=== PATIENT | male | born 1975 | race Caucasian/White ===

== ENCOUNTER 2018-10-08 19:07 | Emergency (ER) | payer MEDICAID ==
[~2018-10-08] VITALS: Ht 172.7 cm; Wt 81.6 kg
[2018-10-08 19:15] VITALS: BP 149/102
--- NOTE | 2018-10-08 19:34 | NUR ---
PT PRESENTS TO ED WITH RLQ ABD PAIN RAIDIATING TO RIGHT LOWER BACK X1 HR. C/O N/V/C X2 DAYS. POSITIONED IN BED FOR COMFORT. A&OX4. AT BEDSIDE. VSS. ER MD AWARE. CONTINUE TO MONITOR. HX OF HYPERLIPIDEMIA.
--- NOTE | 2018-10-08 19:34 | NUR ---
Dr. Valdes evaluating patient at bedside.
[2018-10-08] MEDS ORDERED: ONDANSETRON 4 MG/2 ML VIAL IVP ONE ×2 (19:40→20:10)
[2018-10-08] MEDS ORDERED: MORPHINE SULFATE 4 MG/ML SYR IVP ONE ×2 (19:40→20:10)
[2018-10-08] MEDS: NACL 0.9% 1,000 ML IV SCH ×2 (19:53→20:35)
--- NOTE | 2018-10-08 19:55 | NUR ---
Patient taken to CT scan via gurney by Prezto.
[2018-10-08 20:00] LABS: BASOPHILS % (AUTO) 0.2 % (0.0-2.0); EOSINOPHILS # (AUTO) 0.2 K/uL (0-0.4); EOSINOPHILS % (AUTO) 2.1 % (0.0-4.0); HEMATOCRIT 45.1 % (36-52); HEMOGLOBIN 15.2 g/dL (12.0-18.0); LYMPHOCYTES # (AUTO) 2.4 K/uL (2.0-11.5); LYMPHOCYTES % (AUTO) 30.7 % (20.5-51.1); MEAN CORPUSCULAR HEMOGLOBIN 31 pg (27-31); MEAN CORPUSCULAR HGB CONC 34 g/dL (33-37); MEAN CORPUSCULAR VOLUME 91.5 fL (80-94); MONOCYTES # (AUTO) 0.7 K/uL (0.8-1.0); NEUTROPHILS # (AUTO) 4.5 K/uL (1.8-7.7); PLATELET COUNT (AUTO) 167 K/uL (140-450); RED BLOOD CELL COUNT(AUTO) 4.93 MIL/uL (4.20-6.10); RED CELL DISTRIBUTION WIDTH 13.2 % (11.6-13.7); WHITE BLOOD COUNT (AUTO) 7.7 K/uL (4.8-10.8)
[2018-10-08 20:05] LABS: APPEARANCE,URINE CLEAR (CLEAR); BILIRUBIN,URINE NEGATIVE (NEGATIVE); BLOOD, URINE 1+ (NEGATIVE); COLOR,URINE YELLOW (YELLOW); LEUKOCYTE ESTERASE ,URINE NEGATIVE (NEGATIVE); NITRITE, URINE NEGATIVE (NEGATIVE); UGLUCOSE NEGATIVE (NEGATIVE)
[2018-10-08 20:15] LABS: ALBUMIN 4.2 g/dL (3.4-5.0); ANION GAP 9.5 (8-16); CARBON DIOXIDE 30.5 mmol/L (21-32); CREATININE 1.3 mg/dL (0.7-1.3); TOTAL BILIRUBIN 0.3 mg/dL (0.0-1.0)
[2018-10-08 20:17] LABS: RBC,URINE 3-10 (FEW) /HPF (0-5)
[2018-10-08 20:18] LABS: WBC,URINE 0-5 (RARE) /HPF (0-5)
--- NOTE | 2018-10-08 21:02 | NUR ---
COLD CLOTH PROVIDED TO PT FOR PAIN COMFORT MEASURE.
[2018-10-08] MEDS ORDERED: KETOROLAC 30 MG/ML VIAL IVP ONE (21:10)
--- NOTE | 2018-10-08 22:10 | NUR ---
Dr. Valdes re-evaluating patient at bedside.
[2018-10-08 22:31] VITALS: BP 136/89
--- NOTE | 2018-10-08 22:31 | NUR ---
Patient discharged with v/s stable. Written and verbal after care instructions given and explained. Patient alert, oriented and verbalized understanding of instructions. Ambulatory with steady gait. All questions addressed prior to discharge. ID band removed. Patient advised to follow up with PMD. Rx of zofran, flomax, and norco given. Patient educated on indication of medication including possible reaction and side effects. Opportunity to ask questions provided and answered.
--- NOTE | 2018-10-11 07:50 | NUR ---
Verified with RN that 1000ml 0.9NS IV that was started at 1940 completed at 2099.
== END 2018-10-08 22:31 | disposition home or self-care (01) ==
LOC: MED 19:07
DX: N20.0 Calculus of kidney (principal)
CPT/HCPCS: 36415; 74176; 80053; 81001; 85025; 87086; 96361; 96374; 96375; 96376; 99284; J1885; J2270; J2405; J7030; 81002

== ENCOUNTER 2018-12-16 09:56 | Emergency (ER) | payer SELFPAY ==
[~2018-12-16] VITALS: Ht 170.2 cm; Wt 53.5 kg
[2018-12-16 10:18] VITALS: BP 129/76
--- NOTE | 2018-12-16 10:28 | NUR ---
pt first found on er # 03 hob @ 30 degrees sr up,c/o left flank area pains for 3 hours,has rt kidney stone by hx.vas 04/30 NOW.AWAITS ER MD EVALUATIONS/ASSESSMENTS.
--- NOTE | 2018-12-16 10:32 | NUR ---
cookie melton at bedside for evaluations/assessments.obinna bunch.awaits reevaluations.
[2018-12-16] MEDS ORDERED: KETOROLAC 30 MG/ML VIAL IVP ONE (10:40)
[2018-12-16] MEDS ORDERED: NACL 0.9% 1,000 ML IV ONE (10:40)
[2018-12-16] MEDS ORDERED: ONDANSETRON 4 MG/2 ML VIAL IVP ONE (10:45)
[2018-12-16 10:52] LABS: BASOPHILS % (AUTO) 0.3 % (0.0-2.0); EOSINOPHILS # (AUTO) 0.1 K/uL (0-0.4); EOSINOPHILS % (AUTO) 0.9 % (0.0-4.0); HEMATOCRIT 45.9 % (36-52); HEMOGLOBIN 15.8 g/dL (12.0-18.0); LYMPHOCYTES # (AUTO) 1.2 K/uL (2.0-11.5); MEAN CORPUSCULAR HEMOGLOBIN 32 pg (27-31); MEAN CORPUSCULAR HGB CONC 34 g/dL (33-37); MEAN CORPUSCULAR VOLUME 91.9 fL (80-94); MONOCYTES # (AUTO) 0.6 K/uL (0.8-1.0); MONOCYTES % (AUTO) 6.4 % (1.7-9.3); NEUTROPHILS # (AUTO) 7.3 K/uL (1.8-7.7); NEUTROPHILS % (AUTO) 79.4 % (42.2-75.2); PLATELET COUNT (AUTO) 178 K/uL (140-450); RED CELL DISTRIBUTION WIDTH 12.9 % (11.6-13.7); WHITE BLOOD COUNT (AUTO) 9.2 K/uL (4.8-10.8)
--- NOTE | 2018-12-16 10:55 | NUR ---
to ct test area via stretcher,ivf infusing well.obinna bunch.awaits test results,reevaluations.
[2018-12-16 10:59] LABS: ANION GAP 12.4 (8-16); CARBON DIOXIDE 28.4 mmol/L (21-32); CREATININE 1.3 mg/dL (0.7-1.3); POTASSIUM 3.8 mmol/L (3.5-5.1)
--- NOTE | 2018-12-16 10:59 | NUR ---
PT SENT TO CT WITH TECH AAOX4. PAIN POST IVP PAIN MEDS 01/28. ER MD NOTIFTED
[2018-12-16 11:05] LABS: ALBUMIN 4.2 g/dL (3.4-5.0); TOTAL BILIRUBIN 0.5 mg/dL (0.0-1.0)
--- NOTE | 2018-12-16 11:48 | NUR ---
cookie melton at bedside for reevaluations.obinna bunch.spouse bedside.awaits reevaluations.
--- NOTE | 2018-12-16 12:01 | NUR ---
STILL UNABLE TO URINATE,SPOUSE BEDSIDE.ER MD AWARE FOR PT TO HAVE PO FLUIDS.DONE.awaits reevaluations.
--- NOTE | 2018-12-16 12:06 | NUR ---
pt was able to use urinal @ 75 ml,urine specimen sent to lab.pt tolerated procedures with no incidents.awaits reevaluations.
[2018-12-16] MEDS ORDERED: oxyCODONE/APAP 5/325 MG 1 TAB TAB PO ONE (12:10)
[2018-12-16 12:54] LABS: APPEARANCE,URINE HAZY (CLEAR); BILIRUBIN,URINE NEGATIVE (NEGATIVE); BLOOD, URINE 3+ (NEGATIVE); LEUKOCYTE ESTERASE ,URINE NEGATIVE (NEGATIVE); NITRITE, URINE NEGATIVE (NEGATIVE); PH,URINE 5.5 (5.0-9.0); UGLUCOSE NEGATIVE (NEGATIVE)
--- NOTE | 2018-12-16 13:04 | NUR ---
Patient appears to be resting in bed. Vital Signs within normal limits. Respirations even and unlabored.
--- NOTE | 2018-12-16 13:24 | NUR ---
resting asleep er # 03 hob @ 30 degrees sr up,spouse bedside.awaits reevaluations.
[2018-12-16 13:27] LABS: WBC,URINE 0-5 /HPF (0-5)
[2018-12-16 13:28] LABS: COLOR,URINE ORANGE (YELLOW)
--- NOTE | 2018-12-16 13:40 | NUR ---
was able to use urinal with good result @ 200 ml output.pt tolerated procedures with no incidents.awaits reevaluations.obinna bunch.
--- NOTE | 2018-12-16 14:04 | NUR ---
iv access removed with catheter intact,no signs redness pains swelling to icv site,left ac area.pt tolerated procedures with no incidents/.upon er md reevaluations pt d/c'ed in care of spouse with rx's,instructions and to follow up with pmd/clinic for checkup further evaluations.ambulates on his own and states he understands instructions aND WILL COMPLY.RETURN TO NEARest appropriate medical facility if conditions owrsens/emergencies.obinna bunch.
[2018-12-16 14:15] VITALS: BP 122/87
== END 2018-12-16 14:03 | disposition home or self-care (01) ==
LOC: MED 09:56
DX: N20.0 Calculus of kidney (principal)
CPT/HCPCS: 36415; 74176; 80053; 81001; 85025; 87086; 96374; 96375; 99284; J1885; J2405; J7030; J7060

== ENCOUNTER 2021-05-28 07:08 | Emergency (ER) | payer MEDICAID ==
[~2021-05-28] VITALS: Ht 175.3 cm; Wt 86.2 kg
[2021-05-28 07:23] VITALS: BP 140/89
--- NOTE | 2021-05-28 07:29 | NUR ---
CH A Addendum: 05/28/21 at 0828 by [email or web address] handed on urine cup.
--- NOTE | 2021-05-28 07:53 | NUR ---
bib C/O LEFT TESTICULAR PAIN RADIATING TO LLQ ABDOMINAL PAIN, N/V & DYSURIA X TODAY. PMH: DENIES
[2021-05-28] MEDS ORDERED: MORPHINE SULFATE 4 MG/ML SYR IVP ONE (08:10)
[2021-05-28] MEDS ORDERED: NACL 0.9% 1,000 ML IV ONE (08:10)
[2021-05-28] MEDS ORDERED: KETOROLAC 30 MG/ML VIAL IVP ONE (08:10)
--- NOTE | 2021-05-28 08:16 | NUR ---
SIGN HANGER SUPERVISOR PHONE NAVEED #[phone]
--- NOTE | 2021-05-28 08:20 | NUR ---
PT TAKEN TO X RAY.
--- NOTE | 2021-05-28 09:07 | NUR ---
PT BACK FROM US/RAD. PT IN CHAIR A
[2021-05-28 09:14] LABS: APPEARANCE,URINE CLEAR (CLEAR); BILIRUBIN,URINE NEGATIVE (NEGATIVE); BLOOD, URINE 1+ (NEGATIVE); COLOR,URINE YELLOW (YELLOW); LEUKOCYTE ESTERASE ,URINE NEGATIVE (NEGATIVE); NITRITE, URINE NEGATIVE (NEGATIVE); PH,URINE 5.5 (5.0-9.0); UGLUCOSE NEGATIVE (NEGATIVE)
--- NOTE | 2021-05-28 09:15 | NUR ---
20 G IV ESTABLISHED TO PTS RIGHT AC. BLOOD SAMPLES COLLECTED VIA IV AND WALKED TO LAB
[2021-05-28 09:23] LABS: BASOPHILS % (AUTO) 0.5 % (0.0-2.0); EOSINOPHILS # (AUTO) 0.1 K/uL (0-0.4); EOSINOPHILS % (AUTO) 0.7 % (0.0-4.0); HEMOGLOBIN 16.8 g/dL (12.0-18.0); LYMPHOCYTES # (AUTO) 1.1 K/uL (2.0-11.5); LYMPHOCYTES % (AUTO) 13.2 % (20.5-51.1); MEAN CORPUSCULAR HEMOGLOBIN 32 pg (27-31); MEAN CORPUSCULAR HGB CONC 34 g/dL (33-37); MONOCYTES # (AUTO) 0.5 K/uL (0.8-1.0); MONOCYTES % (AUTO) 5.7 % (1.7-9.3); NEUTROPHILS # (AUTO) 6.8 K/uL (1.8-7.7); NEUTROPHILS % (AUTO) 79.9 % (42.2-75.2); PLATELET COUNT (AUTO) 171 K/uL (140-450); RED BLOOD CELL COUNT(AUTO) 5.27 MIL/uL (4.20-6.10); RED CELL DISTRIBUTION WIDTH 13.7 % (11.6-13.7); WHITE BLOOD COUNT (AUTO) 8.5 K/uL (4.8-10.8)
[2021-05-28 09:35] LABS: ALBUMIN 4.6 g/dL (3.4-5.0); ANION GAP 10.4 (8-16); CARBON DIOXIDE 28.7 mmol/L (21-32); CREATININE 1.6 mg/dL (0.6-1.3); POTASSIUM 4.1 mmol/L (3.5-5.1); TOTAL BILIRUBIN 0.3 mg/dL (0.0-1.0)
[2021-05-28 09:52] LABS: RBC,URINE 0-5 /HPF (0-5); WBC,URINE 0-5 /HPF (0-5)
[2021-05-28] MEDS ORDERED: IBUP-2213 PO (11:08)
[2021-05-28] MEDS ORDERED: TAMS0.4C96 PO (11:08)
[2021-05-28 11:29] VITALS: BP 132/77
--- NOTE | 2021-05-28 11:29 | NUR ---
Patient discharged with v/s stable. Written and verbal after care instructions given and explained for Kidney stones. Patient alert, oriented and verbalized understanding of instructions. Ambulatory with steady gait. All questions addressed prior to discharge. ID band removed. Patient advised to follow up with PMD. Rx of Ibuprofen, Tamsulosin Hcl given. Patient educated on indication of medication including possible reaction and side effects. Opportunity to ask questions provided and answered.
== END 2021-05-28 11:29 | disposition home or self-care (01) ==
LOC: MED 07:08
DX: R10.9 Unspecified abdominal pain (principal); R03.0 Elevated blood-pressure reading, without diagnosis of hypertension; R11.2 Nausea with vomiting, unspecified; N50.812 Left testicular pain; Z79.899 Other long term (current) drug therapy
CPT/HCPCS: 36415; 74018; 76770; 76870; 80053; 81001; 85025; 87086; 96361; 96374; 96375; 99285; J1885; J2270; J7030; Q0092

== ENCOUNTER 2022-01-27 03:49 | Emergency (ER) | payer MEDICAID ==
[~2022-01-27] VITALS: Ht 172.7 cm; Wt 86.2 kg
[~2022-01-27 03:49] MED LIST: IBUP-2213 PO; TAMS0.4C96 PO
[2022-01-27 03:53] VITALS: BP 134/97
--- NOTE | 2022-01-27 04:01 | NUR ---
Patient ambulated to bed 11.
[2022-01-27] MEDS ORDERED: ONDANSETRON 4 MG/2 ML VIAL IVP ONE ×2 (04:05→05:25)
[2022-01-27] MEDS ORDERED: KETOROLAC 30 MG/ML VIAL IVP ONE (04:05)
[2022-01-27] MEDS ORDERED: NACL 0.9% 1,000 ML IV ONE (04:05)
--- NOTE | 2022-01-27 04:14 | NUR ---
46 YO/M PRESENTS TO ED W C/O L FLANK PAIN 8/10 PRESSURE, NON-RAD, CONSTANT X2 DAYS, +N/V, CHILLS, + BURNING URINATION, RETENTION, FREQUENCY BUT ONLY DRIBBLING, + L TESTICLE PAIN PRESSURE X2-3 DAYS (NO SWELLING OR REDNESS). PT DENIES ANY FEVER OR DIARRHEA. PT LAYING IN BED LOCKED IN LOWEST POSITION. AT BEDSIDE. WILL CONTINUE TO MONITOR. PMH: KIDNEY STONES, HLD ALLERGIES: DENIES
--- NOTE | 2022-01-27 04:22 | NUR ---
BLOOD DRAWN AND SENT TO LAB.
--- NOTE | 2022-01-27 04:40 | NUR ---
PT TO CT VIA [facility].
[2022-01-27 04:51] LABS: BASOPHILS % (AUTO) 0.5 % (0.0-2.0); EOSINOPHILS # (AUTO) 0.1 K/uL (0-0.4); EOSINOPHILS % (AUTO) 2.5 % (0.0-4.0); HEMATOCRIT 45.2 % (36-52); HEMOGLOBIN 15.1 g/dL (12.0-18.0); LYMPHOCYTES # (AUTO) 1.5 K/uL (2.0-11.5); LYMPHOCYTES % (AUTO) 26.6 % (20.5-51.1); MEAN CORPUSCULAR HEMOGLOBIN 31 pg (27-31); MEAN CORPUSCULAR HGB CONC 33 g/dL (33-37); MEAN CORPUSCULAR VOLUME 93.5 fL (80-94); MONOCYTES # (AUTO) 0.4 K/uL (0.8-1.0); MONOCYTES % (AUTO) 7.3 % (1.7-9.3); NEUTROPHILS # (AUTO) 3.6 K/uL (1.8-7.7); NEUTROPHILS % (AUTO) 63.1 % (42.2-75.2); PLATELET COUNT (AUTO) 174 K/uL (140-450); RED BLOOD CELL COUNT(AUTO) 4.83 MIL/uL (4.20-6.10); RED CELL DISTRIBUTION WIDTH 13.5 % (11.6-13.7); WHITE BLOOD COUNT (AUTO) 5.6 K/uL (4.8-10.8)
--- NOTE | 2022-01-27 05:09 | NUR ---
PT UNABLE TO PROVIDE URINE. WILL RE-ATTEMPT SOON.
[2022-01-27] MEDS ORDERED: MORPHINE SULFATE 4 MG/ML SYR IVP ONE (05:10)
[2022-01-27] MEDS ORDERED: MORPHINE SULFATE 2 MG/ML SYR ONE (05:10)
[2022-01-27 05:21] LABS: ALBUMIN 3.7 g/dL (3.4-5.0); ANION GAP 9.8 (8-16); CARBON DIOXIDE 25.8 mmol/L (21-32); CREATININE 1.3 mg/dL (0.6-1.3); POTASSIUM 3.6 mmol/L (3.5-5.1); TOTAL BILIRUBIN 0.4 mg/dL (0.0-1.0)
[2022-01-27] MEDS ORDERED: PROCHLORPERAZINE 10 MG/2 ML VIAL IVP ONE (05:25)
--- NOTE | 2022-01-27 05:33 | NUR ---
pt reports pain and nausea greately improving at this time.
--- NOTE | 2022-01-27 06:06 | NUR ---
pt c/o pelvic pain and L testicle pain, + reports he has only been dribbling urine when attempting to void x1 day. DONALD Smith aware.
--- NOTE | 2022-01-27 06:17 | NUR ---
bladder scanner showed 109cc.
--- NOTE | 2022-01-27 06:43 | NUR ---
PT UNABLE TO PROVIDE URINE. REFUSING STRAIGHT CATH. WILL RE-ATTEMPT SOON.
--- NOTE | 2022-01-27 06:45 | NUR ---
DONALD SHARMA AT BEDSIDE.
--- NOTE | 2022-01-27 06:59 | NUR ---
pt denies ongoing pains or nausea. no symptoms at this time.
--- NOTE | 2022-01-27 07:18 | NUR ---
Pt report given to sara avilez. Transfer of care at this time.
--- NOTE | 2022-01-27 07:50 | NUR ---
Pt is AOX4, able to make needs known. Resp even and unlabored. VSS. Afebrile. Denies pain/CP/N/V/D at this time. All safety measures in place. at bedside.
--- NOTE | 2022-01-27 07:50 | NUR ---
Urine walked over to lab for processing.
[2022-01-27 07:53] LABS: APPEARANCE,URINE SL CLOUDY (CLEAR); BILIRUBIN,URINE NEGATIVE (NEGATIVE); BLOOD, URINE 3+ (NEGATIVE); COLOR,URINE YELLOW (YELLOW); LEUKOCYTE ESTERASE ,URINE NEGATIVE (NEGATIVE); NITRITE, URINE NEGATIVE (NEGATIVE); UGLUCOSE NEGATIVE (NEGATIVE)
[2022-01-27] MEDS ORDERED: ACET-9525 PO (08:00)
[2022-01-27 08:05] LABS: RBC,URINE 20-50 /HPF (0-5); WBC,URINE 0-5 /HPF (0-5)
[2022-01-27 08:07] LABS: CALCIUM OXALATE CRYSTALS,UR None Seen /HPF (None Seen); COARSE GRANULAR CASTS,URINE None Seen /LPF (None Seen); FINE GRANULAR CASTS,URINE None Seen /LPF (None Seen); HYALINE CASTS, URINE None Seen /LPF (None Seen); OTHER CRYSTALS,URINE None Seen /HPF (None Seen); TRICHOMONAS,URINE None Seen /HPF (None Seen); TRIPLE PHOSPHATE CRYSTAL,UR None Seen /HPF (None Seen); URIC ACID CRYSTALS,URINE None Seen /HPF (None Seen); URINE AMORPHOUS URATE None Seen /HPF (None Seen); WAXY CASTS,URINE None Seen /LPF (None Seen)
[2022-01-27 08:08] LABS: OTHER CASTS, URINE None Seen /LPF (None Seen); RED BLOOD CELL CASTS,URINE 0-10 /LPF (None Seen)
[2022-01-27 08:48] VITALS: BP 145/90
--- NOTE | 2022-01-27 08:49 | NUR ---
Patient discharged with v/s stable. Written and verbal after care instructions given and explained. Patient alert, oriented and verbalized understanding of instructions. Ambulatory with steady gait. All questions addressed prior to discharge. ID band removed. Patient advised to follow up with PMD. Rx of HYDROCODONE-ACETAMINOPHEN given. Patient educated on indication of medication including possible reaction and side effects. Opportunity to ask questions provided and answered.
[2022-01-27 08:52] LABS: YEAST,URINE Few /HPF (None Seen)
== END 2022-01-27 08:48 | disposition home or self-care (01) ==
LOC: MED 03:49
DX: N20.0 Calculus of kidney (principal); Z79.899 Other long term (current) drug therapy; Z79.891 Long term (current) use of opiate analgesic
CPT/HCPCS: 36415; 74176; 80053; 81001; 85025; 96361; 96374; 96375; 96376; 99285; J0780; J1885; J2270; J2405; J7030